=== PATIENT | male | born 1995 | race African-American/Black ===

== ENCOUNTER 2019-11-01 02:36 | Emergency (ER) | payer OTHER ==
[~2019-11-01] VITALS: Ht 167.6 cm; Wt 141.0 kg
[2019-11-01 03:15] VITALS: BP 155/99
[2019-11-01] MEDS ORDERED: FLUORESCEIN SODIUM 1MG/STRIP RIGHTEYE ONE (03:15)
== END 2019-11-01 03:36 | disposition home or self-care (01) ==
LOC: ER 02:36
DX: S05.01XA Injury of conjunctiva and corneal abrasion without foreign body, right eye, initial encounter (principal); X58.XXXA Exposure to other specified factors, initial encounter; Y93.89 Activity, other specified; Y92.89 Other specified places as the place of occurrence of the external cause; Y99.8 Other external cause status
CPT/HCPCS: 99283

== ENCOUNTER 2021-07-09 20:31 | Emergency (ER) | payer MEDICAID, OTHER ==
[~2021-07-09] VITALS: Ht 167.6 cm; Wt 140.0 kg
[2021-07-09] MEDS ORDERED: AMOXICILLIN 500 MG CAPSULE PO ONE (22:45)
[2021-07-09] MEDS ORDERED: IBUPROFEN 800MG TABLET PO ONE (22:45)
[2021-07-09] MEDS ORDERED: AMOX-494 MT (22:46)
[2021-07-09] MEDS ORDERED: IBUP-2030 MT (22:46)
[2021-07-09 22:48] VITALS: BP 141/90
== END 2021-07-09 23:21 | disposition home or self-care (01) ==
LOC: ER 20:31
DX: J02.9 Acute pharyngitis, unspecified (principal)
CPT/HCPCS: 99283

== ENCOUNTER 2022-04-01 01:46 | Emergency (ER) | payer MEDICAID, OTHER ==
[~2022-04-01] VITALS: Ht 167.6 cm; Wt 132.0 kg
[~2022-04-01 01:46] MED LIST: AMOX-494 MT; IBUP-2030 MT
[2022-04-01 02:30] VITALS: BP 123/70
[2022-04-01] MEDS ORDERED: DEXAMETHASONE 10 MG/ML VIAL IV ONE (02:30)
[2022-04-01] MEDS ORDERED: KETOROLAC 15MG/ML VIAL IV ONE (02:30)
[2022-04-01] MEDS ORDERED: SODIUM CHLORIDE 0.9% 1,000 ML IV ONE (02:45)
[2022-04-01 03:07] LABS: BASOPHILS % 0.5 % (0.0-2.0); EOSINOPHILS % 0.7 % (0.0-5.0); HEMATOCRIT. 40.1 % (42.0-52.0); HEMOGLOBIN. 13.9 g/dL (14.0-18.0); LYMPHOCYTES % 30.3 % (20.0-50.0); MEAN CORPUSCULAR HEMOGLOBIN 27.8 pg (28.0-32.0); MEAN CORPUSCULAR VOLUME 80.4 fL (80.0-94.0); MEAN PLATELET VOLUME 7.7 fl (7.4-10.4); MONOCYTES % 8.4 % (2.0-8.0); NEUTROPHILS % 60.1 % (40.0-76.0); PLATELET 391 x1000/uL (130-400); RED BLOOD CELL COUNT 4.99 mill/uL (4.7-6.1); RED CELL DISTRIBUTION WIDTH 13.2 % (11.6-14.6)
[2022-04-01 03:18] LABS: CHLORIDE 102 mEq/L (98-107)
[2022-04-01] MEDS ORDERED: PIPERACILLIN/TAZ 3.375G PREMIX 50 ML IV ONE (06:15)
[2022-04-01] MEDS ORDERED: PIPERACILLIN/TAZ 3.375G PREMIX 50 ML IV SCH (06:30)
[2022-04-01] MEDS ORDERED: IOHEXOL-300 100 ML BOTTLE ONE (06:36)
[2022-04-01] MEDS ORDERED: PIPERACILLIN/TAZOBACTAM 3.375GM/50ML PREMIX IV ONE (12:00)
== END 2022-04-01 08:01 | disposition left against medical advice (07) ==
LOC: ER 01:46
DX: J36 Peritonsillar abscess (principal)
CPT/HCPCS: 36415; 70491; 80048; 83605; 85025; 87040; 87070; 87430; 96361; 96365; 96375; 99285; J1100; J1885; J2543; J7030; Q9967

== ENCOUNTER 2023-01-19 17:12 | Emergency (ER) | payer BC, OTHER ==
[~2023-01-19] VITALS: Ht 167.6 cm; Wt 136.0 kg
[2023-01-19 17:26] VITALS: BP 146/100
[2023-01-19] MEDS ORDERED: TETRACAINE 0.5% OPHTH DROPS 4ML BOTHEYE ONE (18:45)
[2023-01-19] MEDS ORDERED: FLUORESCEIN SODIUM 1MG/STRIP BOTHEYE ONE (18:45)
[2023-01-19] MEDS ORDERED: OFLO5DRO3 LEFTEYE (19:32)
== END 2023-01-19 19:40 | disposition home or self-care (01) ==
LOC: ER 17:12
DX: S05.02XA Injury of conjunctiva and corneal abrasion without foreign body, left eye, initial encounter (principal); S05.01XA Injury of conjunctiva and corneal abrasion without foreign body, right eye, initial encounter; J02.9 Acute pharyngitis, unspecified; X58.XXXA Exposure to other specified factors, initial encounter; Y93.89 Activity, other specified; Y92.89 Other specified places as the place of occurrence of the external cause; Y99.8 Other external cause status
CPT/HCPCS: 87070; 87430; 99283

== ENCOUNTER 2023-09-18 16:59 | Emergency (ER) | payer OTHER ==
[~2023-09-18] VITALS: Ht 180.3 cm; Wt 104.0 kg
[~2023-09-18 16:59] MED LIST changes: +OCUFLX LEFTEYE
[2023-09-18 17:10] VITALS: O2SAT 99
[2023-09-18] MEDS ORDERED: AMOX-494 MT (18:26)
[2023-09-18 18:37] VITALS: BP 134/64; PULSE 93; RESP 18; TEMP 98.2
== END 2023-09-18 18:38 | disposition home or self-care (01) ==
LOC: ER 16:59
DX: H66.91 Otitis media, unspecified, right ear (principal)
CPT/HCPCS: 99283